=== PATIENT | female | born 2000 | race Caucasian/White ===

== ENCOUNTER 2018-09-30 11:52 | Emergency (ER) | payer BC ==
[~2018-09-30] VITALS: Wt 67.0 kg
[2018-09-30 11:56] VITALS: BP 135/62; PULSE 75; RESP 18
[2018-09-30] MEDS ORDERED: IBUP800T48 PO (14:18)
[2018-09-30] MEDS ORDERED: IBUPROFEN 800 MG TAB PO ONE (14:30)
--- NOTE | 2018-09-30 15:43 | ERD ---
ER Documentation Chief Complaint Chief Complaint VAG BLEED WITH PELVIC PAIN; DENIES PREG HPI 18-year-old female presenting with vaginal bleeding and pelvic pain. Patient states she has a history of miscarriages and ovarian cyst. She states that this bleeding started yesterday she has diffuse cramping. Denies fever. Has not taken medications for symptoms. Denies vomiting. Denies changes in urination or bowel movement. Denies medical problems. NKDA. Surgical history of cyst removal in the ovary. Social history denies ROS All systems reviewed and are negative except as per history of present illness. Medications Home Meds Active Scripts Ibuprofen* (Motrin*) 800 Mg Tab, 800 MG PO Q6, #30 TAB Prov:TANIA PERERA PA-C 09/30/18 Allergies Allergies: Coded Allergies: No Known Allergy (Unverified , 09/30/18) PMhx/Soc Medical and Surgical Hx: pt denies Medical Hx, pt denies Surgical Hx Hx Alcohol Use: No Hx Substance Use: No Hx Tobacco Use: No Smoking Status: Never smoker FmHx Family History: No diabetes, No coronary disease, No other Physical Exam Vitals Vital Signs Date Temp Pulse Resp B/P (MAP) Pulse Ox O2 O2 Flow FiO2 Time Delivery Rate 09/30/18 98.1 75 18 135/62 100 11:56 (86) Physical Exam GENERAL: The patient is well-appearing, well-nourished, in no acute distress CHEST: Clear to auscultation bilaterally. There are no rales, wheezes or rhonchi. HEART: Regular rate and rhythm. No murmurs, clicks, rubs or gallops. No S3 or S4. ABDOMEN: Normal active bowel sounds. No distention. No organomegaly. Tender to palpation in the suprapubic region was not lateralized to the right or left lower quadrant. BACK: No midline or flank tenderness. No CVA tenderness Result Diagram: 09/30/18 1300 09/30/18 1300 Results 24 hrs Laboratory Tests Test 09/30/18 12:51 09/30/18 12:59 09/30/18 13:00 Urine Color RED Urine Clarity CLOUDY Urine pH 8.0 Urine Specific [place] 1.016 Urine Ketones TRACE mg/dL Urine Nitrite NEGATIVE mg/dL Urine Bilirubin NEGATIVE mg/dL Urine Urobilinogen NEGATIVE mg/dL Urine Leukocyte Esterase NEGATIVE Tejal/ul Urine Microscopic RBC 178 /HPF Urine Microscopic WBC 19 /HPF Urine Squamous Epithelial Cells FEW /HPF Urine Mucus FEW /HPF Urine Hemoglobin 3+ mg/dL Urine Glucose NEGATIVE mg/dL Urine Total Protein 1+ mg/dl POC Beta HCG, Qualitative NEGATIVE White Blood Count 11.2 10^3/ul Red Blood Count 5.12 10^6/ul Hemoglobin 13.0 g/dl Hematocrit 40.6 % Mean Corpuscular Volume 79.3 fl Mean Corpuscular Hemoglobin 25.4 pg Mean Corpuscular 32.0 g/dl Hemoglobin Concent Red Cell Distribution Width 16.2 % Platelet Count 288 10^3/UL Mean Platelet Volume 11.1 fl Immature Granulocytes % 0.400 % Neutrophils % 81.6 % Lymphocytes % 12.6 % Monocytes % 4.7 % Eosinophils % 0.4 % Basophils % 0.3 % Nucleated Red Blood Cells % 0.0 /100WBC Immature Granulocytes # 0.040 10^3/ul Neutrophils # 9.2 10^3/ul Lymphocytes # 1.4 10^3/ul Monocytes # 0.5 10^3/ul Eosinophils # 0.0 10^3/ul Basophils # 0.0 10^3/ul Nucleated Red Blood Cells # 0.0 10^3/ul Sodium Level 143 mmol/L Potassium Level 5.0 mmol/L Chloride Level 104 mmol/L Carbon Dioxide Level 29 mmol/L Anion Gap 10 Blood Urea Nitrogen 5 mg/dl Creatinine 0.59 mg/dl Est Glomerular Filtrat > 60 mL/min Rate mL/min Glucose Level 94 mg/dl Calcium Level 10.0 mg/dl Total Bilirubin 0.2 mg/dl Direct Bilirubin 0.00 mg/dl Indirect Bilirubin 0.2 mg/dl Aspartate Amino 19 IU/L Transf (AST/SGOT) Alanine 25 IU/L Aminotransferase (ALT/SGPT) Alkaline Phosphatase 68 IU/L Total Protein 7.1 g/dl Albumin 4.6 g/dl Globulin 2.50 g/dl Albumin/Globulin Ratio 1.84 Lipase 37 U/L Current Medications Medications Dose Sig/Veronica Start Time Status Last (Trade) Ordered Route PRN Stop Time Admin Dose Reason Admin Ibuprofen 800 mg ONCE ONCE 09/30/18 DC 09/30/18 (Motrin) PO 14:30 14:26 09/30/18 14:30 Procedures/MDM DIAGNOSTIC IMAGING REPORT Patient: YANAPAIGE ALEX : 2000 Age: 18 Sex: F MR #: [id number] DOS: 09/30/18 1241 Ordering MD: DREW PERERA PA-C Location: [facility] Room/Bed: PROCEDURE: US Pelvis CLINICAL INDICATION: Pelvic pain. TECHNIQUE: Sonographic evaluation of the pelvis was performed utilizing both transabdominal and transvaginal technique. Curved array transabdominal transducer technique as well as a high frequency endovaginal probe was utilized. Images were reviewed on the high-resolution PACS workstation. COMPARISON: No prior studies are available for comparison. FINDINGS: The uterus is normal in size, echogenicity, and morphology measuring 6.7 x 2.9 x 4.0 cm in dimension. The endometrium is thin and homogeneous measuring 2.8 mm in diameter. The normal trilaminar stripe of the endometrium is preserved. The right ovary measures 2.5 x 1.2 x 1.9 cm in dimension. The left ovary measures 2.6 x 1.4 x 1.3 cm in dimension. The ovaries are symmetric in size, echogenicity, and morphology. Normal Doppler flow is demonstrated to both ovaries. There are no adnexal masses. There is no significant free fluid in the pelvis. IMPRESSION: Unremarkable ultrasound of the pelvis. ER Course: 800mg ibuprofen given in ED MDM: 18-year-old female presenting with menstruation pain. Patient's test is negative. Hemoglobin is stable. Patient's ultrasounds within normal limits. I have low suspicion for ovarian cyst or ovarian torsion. I have low suspicion for urinary tract infection. I have low suspicion for other acute abdominal emergencies patient has no pain with jumping up and down and no peritoneal signs. Patient is discharged stricter precautions. Patient is told symptoms change or worsen to immediately return to the ER. All questions answered at discharge Departure Diagnosis: Primary Impression: Pelvic pain Condition: Stable Patient Instructions: Pelvic Pain, Unknown Cause Referrals: COMMUNITY CLINICS YOU HAVE RECEIVED A MEDICAL SCREENING EXAM AND THE RESULTS INDICATE THAT YOU DO NOT HAVE A CONDITION THAT REQUIRES URGENT TREATMENT IN THE EMERGENCY DEPARTMENT. FURTHER EVALUATION AND TREATMENT OF YOUR CONDITION CAN WAIT UNTIL YOU ARE SEEN IN YOUR DOCTORS OFFICE WITHIN THE NEXT 1-2 DAYS. IT IS YOUR RESPONSIBILITY TO MAKE AN APPOINTMENT FOR FOLOW-UP CARE. IF YOU HAVE A PRIMARY DOCTOR --you should call your primary doctor and schedule an appointment IF YOU DO NOT HAVE A PRIMARY DOCTOR YOU CAN CALL OUR PHYSICIAN REFERRAL HOTLINE AT IF YOU CAN NOT AFFORD TO SEE A PHYSICIAN YOU CAN CHOSE FROM THE FOLLOWING [facility] [address] [facility] [address] [facility] [address] [facility] [address] [facility] [address] [facility]. [facility] [address] Additional Instructions: FOLLOW UP WITH YOUR PRIMARY CARE PHYSICIAN TOMORROW.Return to this facility if you are not improving as expected. TANIA PERERA PA-C Sep 30, 2018 15:43
== END 2018-09-30 14:29 | disposition home or self-care (01) ==
LOC: FTE 11:52
DX: R10.2 Pelvic and perineal pain (principal)
CPT/HCPCS: 36415; 76830; 76856; 80053; 81001; 81025; 83690; 85025

== ENCOUNTER 2019-01-23 16:35 | Emergency (ER) | payer BC ==
[~2019-01-23] VITALS: Ht 154.9 cm; Wt 68.3 kg
[~2019-01-23 16:35] MED LIST: IBUP800T48 PO
[2019-01-23 16:40] VITALS: Ht 154.9 cm; Wt 68.3 kg
[2019-01-23] MEDS ORDERED: ACETAMINOPHEN 325 MG TAB PO ONE (18:00)
[2019-01-23] MEDS ORDERED: ACET500C5 PO (20:45)
--- NOTE | 2019-01-23 20:47 | ERD ---
ER Documentation Chief Complaint Chief Complaint pt bib family with c/o pelvic pain x 2 wks, 8 wks HPI 18-year-old female presents with lower abdominal pain for last 2 weeks. She is approximately 8 weeks by dates. She denies dysuria, vaginal bleeding, specific right or left sided pain. She denies vaginal discharge. She is receiving care and has had her labs. She denies vomiting, fevers, cough, shortness breath or chest pain. ROS All systems reviewed and are negative except as per history of present illness. Medications Home Meds Active Scripts Acetaminophen* (Tylophen*) 500 Mg Capsule, 1 CAP PO Q6H PRN for PAIN AND OR ELEVATED TEMP, #15 CAP Prov:FAIZA STAFFORD MD 01/23/19 Ibuprofen* (Motrin*) 800 Mg Tab, 800 MG PO Q6, #30 TAB Prov:TANIA PERERA PA-C 09/30/18 Allergies Allergies: Coded Allergies: No Known Allergy (Unverified , 01/23/19) PMhx/Soc Medical and Surgical Hx: pt denies Medical Hx, pt denies Surgical Hx Hx Alcohol Use: No Hx Substance Use: No Hx Tobacco Use: No Smoking Status: Never smoker Physical Exam Vitals Vital Signs Date Temp Pulse Resp B/P (MAP) Pulse Ox O2 O2 Flow FiO2 Time Delivery Rate 01/23/19 37.3 17:58 01/23/19 99.1 98 18 136/64 100 16:40 (88) Physical Exam Const: No acute distress Head: Atraumatic Eyes: Normal Conjunctiva ENT: Normal External Ears, Nose and Mouth. Neck: Full range of motion. No meningismus. Resp: Clear to auscultation bilaterally Cardio: Regular rate and rhythm, no murmurs Abd: Soft, non tender, non distended. Normal bowel sounds Skin: No petechiae or rashes Back: No midline or flank tenderness Ext: No cyanosis, or edema Neur: Awake and alert Psych: Normal Mood and Affect Results 24 hrs Laboratory Tests Test 01/23/19 20:08 Urine Color YELLOW Urine Clarity SLIGHTLY CLOUDY Urine pH 6.0 Urine Specific [place] 1.018 Urine Ketones NEGATIVE mg/dL Urine Nitrite NEGATIVE mg/dL Urine Bilirubin NEGATIVE mg/dL Urine Urobilinogen NEGATIVE mg/dL Urine Leukocyte Esterase NEGATIVE Tejal/ul Urine Microscopic RBC 0 /HPF Urine Microscopic WBC 3 /HPF Urine Squamous Epithelial Cells FEW /HPF Urine Amorphous Crystals FEW /HPF Urine Bacteria FEW /HPF Urine Mucus FEW /HPF Urine Hemoglobin NEGATIVE mg/dL Urine Glucose NEGATIVE mg/dL Urine Total Protein NEGATIVE mg/dl Current Medications Medications Dose Sig/Veronica Start Time Status Last (Trade) Ordered Route PRN Stop Time Admin Dose Reason Admin 650 mg ONCE ONCE 01/23/19 DC 01/23/19 Acetaminophen PO 18:00 17:58 (Tylenol 01/23/19 18:01 Tab) Procedures/MDM Urine shows no significant acute abnormalities. Pelvic ultrasound shows normal- appearing first trimester without signs of ectopic or additional acute abnormalities. Patient given Tylenol for pain. Patient presents with lower abdominal pain of early of uncertain etiology. No current signs of tubo-ovarian abscess, current signs or symptoms and history do not suggest appendicitis, surgical abdomen. Will treat with Tylenol, recommendations for primary care follow-up and return precautions for fevers, vomiting, bleeding, new or worsening symptoms. The patient was stable with no new complaints during the ER course. Clinically, there is no current evidence to suggest meningitis, sepsis, acute abdomen, pneumonia, stroke, acute coronary syndrome, pulmonary embolism, aortic dissection or any other emergent condition appearing to require further evaluation or hospitalization. Patient counseled regarding my diagnostic impression and care plan. Prior to discharge all questio ns answered. Pt agrees with treatment plan and understands strict return precautions. Pt is instructed to follow up with primary care provider within 24- 48 hours. Precautionary instructions provided including instructions to return to the ER if not improving or for any worsening or changing symptoms or concerns. Departure Diagnosis: Primary Impression: Pelvic pain complicating Trimester: first trimester Qualified Codes: O26.891 - Other specified related conditions, first trimester; R10.2 - Pelvic and perineal pain Condition: Stable Patient Instructions: Abdominal Pain, Early Referrals: DOCTOR,NOT ON STAFF (PCP) Additional Instructions: Examines normal hoy. Cheque otro vez con garcia doctor primario en el proximo tang or regresa para mas o nueva simptomas. FAIZA STAFFORD MD Jan 23, 2019 20:47
[2019-01-23 21:02] VITALS: BP 115/66; PULSE 64; RESP 18
== END 2019-01-23 21:03 | disposition home or self-care (01) ==
LOC: FTE 16:35
DX: O26.891 Other specified pregnancy related conditions, first trimester (principal); R10.2 Pelvic and perineal pain; Z3A.08 8 weeks gestation of pregnancy
CPT/HCPCS: 76801; 81001; 81003

== ENCOUNTER 2019-02-10 13:02 | Emergency (ER) | payer BC ==
[~2019-02-10] VITALS: Ht 154.9 cm; Wt 64.0 kg
[~2019-02-10 13:02] MED LIST changes: +ACET500C5 PO
[2019-02-10 13:06] VITALS: Ht 154.9 cm; Wt 64.0 kg
[2019-02-10] MEDS ORDERED: ALBUTEROL 0.083% (NEB) 2.5 MG/3 ML AMP HHN STA (15:16)
[2019-02-10] MEDS ORDERED: DEXAMETHASONE 10 MG/ML 1 ML INJ IM ONE (15:30)
[2019-02-10] MEDS ORDERED: IPRATROPIUM (NEB) 0.5 MG/2.5 ML AMP HHN ONE (15:30)
[2019-02-10 17:49] VITALS: BP 127/62; PULSE 94; RESP 18
[2019-02-10] MEDS ORDERED: CETI10TA19 PO (18:07)
[2019-02-10] MEDS ORDERED: ALBU18HF INHALATION (18:23)
--- NOTE | 2019-02-21 07:18 | ERD ---
ER Documentation Chief Complaint Chief Complaint pt is bib self with c/o feeling sob approx 12 wk preg, hx asthma, no inhale HPI History of Present Illness: 18-year-old female who denies a past medical history coming in today with complaint of shortness of breath that has been present for 2 to 3 days. Patient has history of asthma but has no inhaler at home. Associated symptoms includes productive cough with yellow/white phlegm. Patient denies abdominal pain, genitourinary symptoms, pelvic pain, vaginal bleeding, vaginal discharge. Patient denies chest pain, palpitations, fever, chills. At home pharmacological/nonpharmacological treatment for symptoms: Denies Denies social concerns; Denies recent foreign travel ROS All systems reviewed and are negative except as per history of present illness. Medications Home Meds Active Scripts Albuterol Sulfate* (Ventolin HFA*) 18 Gm Hfa.aer.ad, 2 PUFF INHALATION Q6H PRN for WHEEZING AND RESP DISTRESS, #1 INHALER Prov:FARNAZ BENDER NP 02/10/19 Cetirizine Hcl* (Cetirizine Hcl*) 10 Mg Tablet, 10 MG PO DAILY for allergies/cough/runny nose, #30 TAB Prov:FARNAZ BENDER NP 02/10/19 Acetaminophen* (Tylophen*) 500 Mg Capsule, 1 CAP PO Q6H PRN for PAIN AND OR ELEVATED TEMP, #15 CAP Prov:FAIZA STAFFORD MD 01/23/19 Ibuprofen* (Motrin*) 800 Mg Tab, 800 MG PO Q6, #30 TAB Prov:TANIA PERERA PA-C 09/30/18 Allergies Allergies: Coded Allergies: No Known Allergy (Unverified , 01/23/19) PMhx/Soc History of Surgery: Yes (ovarian cysts removal,) Anesthesia Reaction: No Hx Respiratory Disorders: Yes (asthma) Hx Alcohol Use: No Hx Substance Use: No Hx Tobacco Use: No Smoking Status: Never smoker FmHx Family History: No diabetes, No coronary disease Physical Exam Physical Exam Const: No acute distress Head: Atraumatic Eyes: Normal Conjunctiva ENT: Normal External Ears, Nose and Mouth. Neck: Full range of motion. No meningismus. Resp: Clear to auscultation bilaterally, diminished breath sounds Cardio: Regular rate and rhythm, no murmurs Abd: Soft, non tender, non distended. Normal bowel sounds. Palpable fundus. Skin: No petechiae or rashes Back: No midline or flank tenderness Ext: No cyanosis, or edema Neur: Awake and alert Psych: Normal Mood and Affect Results 24 hrs Laboratory Tests Test 02/10/19 14:50 Urine Color YELLOW Urine Clarity SLIGHTLY CLOUDY Urine pH 6.0 Urine Specific [place] 1.018 Urine Ketones TRACE mg/dL Urine Nitrite NEGATIVE mg/dL Urine Bilirubin NEGATIVE mg/dL Urine Urobilinogen NEGATIVE mg/dL Urine Leukocyte Esterase NEGATIVE Tejal/ul Urine Microscopic RBC 1 /HPF Urine Microscopic WBC 1 /HPF Urine Squamous Epithelial Cells FEW /HPF Urine Hemoglobin NEGATIVE mg/dL Urine Glucose NEGATIVE mg/dL Urine Total Protein NEGATIVE mg/dl Current Medications Medications Dose Sig/Veronica Start Time Status Last (Trade) Ordered Route PRN Stop Time Admin Dose Reason Admin Albuterol 5 mg ONCE STAT 02/10/19 DC 02/10/19 (Proventil HHN 15:16 15:42 0.083% (Neb)) 02/10/19 15:18 Ipratropium 0.5 mg ONCE ONCE 02/10/19 DC 02/10/19 [place] [facility] 15:30 15:42 (Atrovent 02/10/19 15:31 0.02% (Neb)) 10 mg ONCE ONCE 02/10/19 DC 02/10/19 Dexamethasone IM 15:30 15:30 (Decadron) 02/10/19 15:31 Procedures/MDM ED consultation regarding patient's physical and history with ED Dr. Ramires. Agrees with plan of care and treatment. ED course includes a thorough examination and history. Medications: Albuterol, ipratropium, dexamethasone Imaging: Labs: Urinalysis Low suspicion for life-threatening medical emergency. Low suspicion for cardiopulmonary emergency. Low suspicion for obstetrical emergency. Patient for infectious process that requires use of antibiotics at this time Otherwise healthy patient presenting with constellation of symptoms likely representing asthma exacerbation as characterized by history, physical exam findings. Urinalysis negative for infection. Patient reassessment 1800: Patient hemodynamically stable. No respiratory distress, otherwise relatively well appearing and nontoxic. Patient verbalizes understanding of instructions as well as follow-up care. Disposition given. Patient educated on diagnoses, prescriptions, follow-up care, return precautions. Strict return precautions given for worsening condition; questions answered discharge. Disposition for discharge with followup in 2 days with PCP/clinic. Departure Diagnosis: Primary Impression: Asthma exacerbation Asthma severity: unspecified severity Asthma persistence: unspecified Qualified Codes: J45.901 - Unspecified asthma with (acute) exacerbation Condition: Stable Patient Instructions: Asthma and Referrals: COMMUNITY CLINICS YOU HAVE RECEIVED A MEDICAL SCREENING EXAM AND THE RESULTS INDICATE THAT YOU DO NOT HAVE A CONDITION THAT REQUIRES URGENT TREATMENT IN THE EMERGENCY DEPARTMENT. FURTHER EVALUATION AND TREATMENT OF YOUR CONDITION CAN WAIT UNTIL YOU ARE SEEN IN YOUR DOCTORS OFFICE WITHIN THE NEXT 1-2 DAYS. IT IS YOUR RESPONSIBILITY TO MAKE AN APPOINTMENT FOR FOLOW-UP CARE. IF YOU HAVE A PRIMARY DOCTOR --you should call your primary doctor and schedule an appointment IF YOU DO NOT HAVE A PRIMARY DOCTOR YOU CAN CALL OUR PHYSICIAN REFERRAL HOTLINE AT IF YOU CAN NOT AFFORD TO SEE A PHYSICIAN YOU CAN CHOSE FROM THE FOLLOWING [facility] [address] [facility]. [facility] [address] [facility] [address] [facility] [address] [facility] [address] [facility] [address] [facility]. [facility] YOU HAVE RECEIVED A MEDICAL SCREENING EXAM AND THE RESULTS INDICATE THAT YOU DO NOT HAVE A CONDITION THAT REQUIRES URGENT TREATMENT IN THE EMERGENCY DEPARTMENT. FURTHER EVALUATION AND TREATMENT OF YOUR CONDITION CAN WAIT UNTIL YOU ARE SEEN IN YOUR DOCTORS OFFICE WITHIN THE NEXT 1-2 DAYS. IT IS YOUR RESPONSIBILITY TO MAKE AN APPOINTMENT FOR FOLOW-UP CARE. IF YOU HAVE A PRIMARY DOCTOR --you should call your primary doctor and schedule and appointment IF YOU DO NOT HAVE A PRIMARY DOCTOR YOU CAN CALL OUR PHYSICIAN REFERRAL HOTLINE AT . IF YOU CAN NOT AFFORD TO SEE A PHYSICIAN YOU CAN CHOSE FROM THE FOLLOWING [facility] INSTITUTIONS: [facility] [address] [place] [address] [facility] [address] [place] [address] [address] Additional Instructions: Muchas emilie por permitirnos participar en julien cuidado. Julien manasa y seguridad es nuestra principal prioridad en [facility]. Es importante leer todas las instrucciones de kerry y la educacin que se proporcionan en julien paquete de kerry. Llame a julien mdico de atencin primaria MAANA para alva taz estephanie los prximos 2 a 4 llanes y lleve toda la informacin y los medicamentos recetados. Llene las recetas y siga exactamente las instrucciones de la etiqueta. -Cetirizina es un antihistamnico que no debe causar somnolencia; tome yee medicamento todos los llanes para los sntomas de alergia / tos / secrecin nasal. Si los sntomas empeoran y julien proveedor no est disponible, regrese inmediatamente al Departamento de Emergencias. ---- Thank you very much for allowing us to participate in your care. Your health and safety is our top priority at [facility]. It is important to read all discharge instructions and education provided in your discharge packet. Call your primary care doctor TOMORROW for an appointment during the next 2-4 days and bring all the information and medications prescribed. Have prescriptions filled and follow precisely the directions on the label. -Cetirizine is an antihistamine that should not cause drowsiness; take this medication every day for allergy-like symptoms/cough/runny nose. If the symptoms get worse and your provider is unavailable, return to the E mergency Department immediately. FARNAZ BENDER NP February 21, 2019 07:18
== END 2019-02-10 17:49 | disposition home or self-care (01) ==
LOC: FTE 13:02
DX: O99.511 Diseases of the respiratory system complicating pregnancy, first trimester (principal); J45.901 Unspecified asthma with (acute) exacerbation; R06.02 Shortness of breath; Z3A.12 12 weeks gestation of pregnancy
CPT/HCPCS: 81001; 94664; J1100; 81003; 96372